=== PATIENT | male | born 1950 | race Caucasian/White ===

== ENCOUNTER 2025-01-16 06:11 | Day surgery (SDC) | payer MEDICARE, OTHER, SELFPAY ==
--- NOTE | 2025-01-11 15:31 | PAT.ANESEVAL ---
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 When Was Last Pacemaker Check QUESTION #4 FULL TEXT: You/Your Family Experience fever (hyperthermia) with Anesthesia Last Oral Intake Last Oral intake: Last Oral Intake NPO since Meds taken in AM with sips of water? Meds patient instructed to take am of surgery PONV PONV - desulphurizer operator: PONV - desulphurizer operator Female No 01/02/25 09:18 HX of Motion Sickness Yes 01/02/25 09:18 HX of N/V After Surgery No 01/02/25 09:18 Non-Smoker Yes 01/02/25 09:18 Duration of Surgery greater Yes 01/02/25 09:18 than 60 minutes Number of Risk Factors 3 01/02/25 09:18 PONV Score Moderate Risk 01/02/25 09:18 Height & Weight Height & Weight: Anesthesia: Height & Weight Height 5 ft 11 in 11/24/24 09:52 Respiratory Assessment Respiratory Assessment - desulphurizer operator: Respiratory Tract Infection Hx - desulphurizer operator Hx Respiratory Tract Infection No 01/02/25 09:18 STOP Sleep Apnea STOP Sleep Apnea - desulphurizer operator: STOP Sleep Apnea - desulphurizer operator Hx Hypertension Yes 01/02/25 09:18 Hx Sleep Apnea No 01/02/25 09:18 CPAP BIPAP Do you snore loudly (louder No 01/02/25 09:18 than talking or can be heard Do you often feel tired/ No 01/02/25 09:18 fatigued/ sleepy during daytime? Has anyone observed you stop No 01/02/25 09:18 breathing during sleep? STOP Results Negative 01/02/25 09:18 QUESTION #5 FULL TEXT : Do you snore loudly (louder than talking or can be heard through closed doors)? 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 Specify any problems Hx of Preganancy in last 3 N/A 01/02/25 09:18 Months Nurse Filling Out Transfusion DAVEY 01/02/25 09:18 & Questions: Date: 01/02/25 01/02/25 09:18 Time: 09:38 01/02/25 09:18 Patient unable to answer at this time (ie. confused, unrespo /Reproduction History /Reproductive History - desulphurizer operator: /Reproductive Hx- desulphurizer operator Hx Now Gestational Age (in weeks): EDC: Hx Hx Para Hx Section SAB No 01/02/25 09:18 [facility] Medical History (Updated 01/02/25 @ 09:33 by Alejandra Villarreal) Wears hearing aid Wears glasses Alcohol use Arthritis Prostate disease High cholesterol Heartburn Non-smoker Leg cramps Mitral valve regurgitation Hypertension History of EKG History of cardiac monitoring History of echocardiogram Cardiology follow-up encounter History of atrial fibrillation Right inguinal hernia Home Medications ?Medication ?Instructions ?Recorded ?Last Taken ?Type apixaban 5 mg tablet (Eliquis) 5 mg PO BID afib 11/24/24 Unknown History coenzyme Q10 100 mg capsule 100 mg PO QDAY 11/24/24 Unknown History (CoQ-10) famotidine 20 mg tablet 20 mg PO DAILY PRN heartburn 11/24/24 Unknown History levothyroxine 50 mcg tablet 50 mcg PO QDAY 11/24/24 Unknown History lisinopril 2.5 mg tablet 2.5 mg PO QDAY 11/24/24 Unknown History metoprolol succinate 50 mg 50 mg PO QHS 11/24/24 Unknown History tablet,extended release 24 hr rosuvastatin 5 mg tablet 5 mg PO QDAY 11/24/24 Unknown History beta prostate 1 tab PO BID 01/02/25 Unknown History qzeizozj-moa-ordqb acid 200 1 tab PO DAILY 01/02/25 Unknown History mcg-vit K1 60 mcg-lycopene 600 mcg tablet (Men's Multivitamin) Allergy/AdvReac Type Severity Reaction Status Date / Time pollen extracts (pollens) Allergy Mild runny nose Verified 01/02/25 09:14 Surgical History (Updated 01/02/25 @ 09:33 by Alejandra Villarreal) History of thyroid surgery History of left inguinal hernia repair Social History (Updated 11/24/24 @ 09:52 by Soledad Matamoros LPN) Smoking Status: Never smoker alcohol intake: never substance use type: does not use Audit: Pertinent Findings Pertinent Findings EKG Perinent findings: 12/13/2024. Sinus rhythm frequent PVCs. Bigeminy. This was noted on cardiology report. Echo (EF%) pertinent findings: 01/02/2025. EF 57%. Exam indication atrial fibrillation. No significant change from 12/18/2023 echo. Consult pertinent findings: 01/02/2025. Cardiology [facility]. Hypertension. Stable no changes. Atrial fibrillation with RVR history.. No changes to current medication. Holter showed predominantly sinus rhythm. Brief 4 run of ventricular tachycardia. Patient informed to stop Eliquis 3 days prior to upcoming hernia surgery. No further workup required. Additional pertinent findings: 12/16/2024. Potassium 5.3 on outside lab. Recommendation Anesthesia Recommendation Anesthesia recommendation: OPTIMIZED for anesthesia
--- NOTE | 2025-01-11 15:38 | PAT.ANESEVAL ---
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 When Was Last Pacemaker Check QUESTION #4 FULL TEXT: You/Your Family Experience fever (hyperthermia) with Anesthesia Last Oral Intake Last Oral intake: Last Oral Intake NPO since Meds taken in AM with sips of water? Meds patient instructed to take am of surgery PONV PONV - medical records auditor: PONV - medical records auditor Female No 01/02/25 09:18 HX of Motion Sickness Yes 01/02/25 09:18 HX of N/V After Surgery No 01/02/25 09:18 Non-Smoker Yes 01/02/25 09:18 Duration of Surgery greater Yes 01/02/25 09:18 than 60 minutes Number of Risk Factors 3 01/02/25 09:18 PONV Score Moderate Risk 01/02/25 09:18 Height & Weight Height & Weight: Anesthesia: Height & Weight Height 5 ft 11 in 11/24/24 09:52 Respiratory Assessment Respiratory Assessment - medical records auditor: Respiratory Tract Infection Hx - medical records auditor Hx Respiratory Tract Infection No 01/02/25 09:18 STOP Sleep Apnea STOP Sleep Apnea - medical records auditor: STOP Sleep Apnea - medical records auditor Hx Hypertension Yes 01/02/25 09:18 Hx Sleep Apnea No 01/02/25 09:18 CPAP BIPAP Do you snore loudly (louder No 01/02/25 09:18 than talking or can be heard Do you often feel tired/ No 01/02/25 09:18 fatigued/ sleepy during daytime? Has anyone observed you stop No 01/02/25 09:18 breathing during sleep? STOP Results Negative 01/02/25 09:18 QUESTION #5 FULL TEXT : Do you snore loudly (louder than talking or can be heard through closed doors)? 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 Specify any problems Hx of Preganancy in last 3 N/A 01/02/25 09:18 Months Nurse Filling Out Transfusion DAVEY 01/02/25 09:18 & Questions: Date: 01/02/25 01/02/25 09:18 Time: 09:38 01/02/25 09:18 Patient unable to answer at this time (ie. confused, unrespo /Reproduction History /Reproductive History - medical records auditor: /Reproductive Hx- medical records auditor Hx Now Gestational Age (in weeks): EDC: Hx Hx Para Hx Section SAB No 01/02/25 09:18 [facility] Medical History (Updated 01/02/25 @ 09:33 by Alejandra Villarreal) Wears hearing aid Wears glasses Alcohol use Arthritis Prostate disease High cholesterol Heartburn Non-smoker Leg cramps Mitral valve regurgitation Hypertension History of EKG History of cardiac monitoring History of echocardiogram Cardiology follow-up encounter History of atrial fibrillation Right inguinal hernia Home Medications ?Medication ?Instructions ?Recorded ?Last Taken ?Type apixaban 5 mg tablet (Eliquis) 5 mg PO BID afib 11/24/24 Unknown History coenzyme Q10 100 mg capsule 100 mg PO QDAY 11/24/24 Unknown History (CoQ-10) famotidine 20 mg tablet 20 mg PO DAILY PRN heartburn 11/24/24 Unknown History levothyroxine 50 mcg tablet 50 mcg PO QDAY 11/24/24 Unknown History lisinopril 2.5 mg tablet 2.5 mg PO QDAY 11/24/24 Unknown History metoprolol succinate 50 mg 50 mg PO QHS 11/24/24 Unknown History tablet,extended release 24 hr rosuvastatin 5 mg tablet 5 mg PO QDAY 11/24/24 Unknown History beta prostate 1 tab PO BID 01/02/25 Unknown History wabybqmr-ncz-vghgp acid 200 1 tab PO DAILY 01/02/25 Unknown History mcg-vit K1 60 mcg-lycopene 600 mcg tablet (Men's Multivitamin) Allergy/AdvReac Type Severity Reaction Status Date / Time pollen extracts (pollens) Allergy Mild runny nose Verified 01/02/25 09:14 Surgical History (Updated 01/02/25 @ 09:33 by Alejandra Villarreal) History of thyroid surgery History of left inguinal hernia repair Social History (Updated 11/24/24 @ 09:52 by Soledad Matamoros LPN) Smoking Status: Never smoker alcohol intake: never substance use type: does not use Audit: Pertinent Findings HISTORY of Pertinent Findings History of Pertinent Findings: EKG Pertinent Findings EKG Perinent findings 12/13/2024. Sinus rhythm 01/11/25 15:37 frequent PVCs. Bigeminy. This was noted on cardiology report. Echo Pertinent Findings Echo (EF%) pertinent findings 01/02/2025. EF 57%. Exam 01/11/25 15:37 indication atrial fibrillation. No significant change from 12/17 echo. Consult Pertinent Findings Consult pertinent findings 01/02/2025. Cardiology 01/11/25 15:37 [facility]. Hypertension. Stable no changes. Atrial fibrillation with RVR history.. No changes to current medication. Holter showed predominantly sinus rhythm. Brief 4 run of ventricular tachycardia. Patient informed to stop Eliquis 3 days prior to upcoming hernia surgery. No further workup required. Additional Pertinent Findings Additional pertinent findings 12/16/2024. Potassium 5.3 on 01/11/25 15:37 outside lab. Pertinent Findings Additional pertinent findings: With potassium on outside lab at 5.3. May consider repeat potassium check on day of surgery to ensure that the potassium is not too high. Recommendation Anesthesia Recommendation Anesthesia recommendation: OPTIMIZED for anesthesia
[2025-01-16] VITALS (7 sets, daily range): BP systolic 131–157; BP diastolic 48–78; PULSE 49–73; RESP 14–16; TEMP 36.2–36.8; O2SAT 95–99; BMI 21.5
--- NOTE | 2025-01-16 06:44 | PCM.PRE.AN2 ---
ASA Classification* ASA Classification ASA Classification: 2 Assessment & Plan Anesthesia* Anesthesia Assessment Anesthesia Assessment: Discussed sedation and/or anesthesia options, risks, benefits, and alternatives with patient/parents/legal guardian/POA. Questions invited. The patient/parents/legal guardian/POA seems to understand and agrees to proceed with anesthesia plan. Reviewed the physical assessment, medical history, allergy history and patient home medications list prior to surgery/procedure/anesthetic and documented any changes. Performed airway and anesthesia risk assessments. 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 When Was Last Pacemaker Check QUESTION #4 FULL TEXT: You/Your Family Experience fever (hyperthermia) with Anesthesia Last Oral Intake Last Oral intake: Last Oral Intake NPO since Meds taken in AM with sips of water? Meds patient instructed to take am of surgery PONV PONV - marketing development specialist: PONV - marketing development specialist Female No 01/02/25 09:18 HX of Motion Sickness Yes 01/02/25 09:18 HX of N/V After Surgery No 01/02/25 09:18 Non-Smoker Yes 01/02/25 09:18 Duration of Surgery greater Yes 01/02/25 09:18 than 60 minutes Number of Risk Factors 3 01/02/25 09:18 PONV Score Moderate Risk 01/02/25 09:18 Height & Weight Height & Weight: Anesthesia: Height & Weight Height 5 ft 11 in 11/24/24 09:52 Respiratory Assessment Respiratory Assessment - marketing development specialist: Respiratory Tract Infection Hx - marketing development specialist Hx Respiratory Tract Infection No 01/02/25 09:18 STOP Sleep Apnea STOP Sleep Apnea - marketing development specialist: STOP Sleep Apnea - marketing development specialist Hx Hypertension Yes 01/02/25 09:18 Hx Sleep Apnea No 01/02/25 09:18 CPAP BIPAP Do you snore loudly (louder No 01/02/25 09:18 than talking or can be heard Do you often feel tired/ No 01/02/25 09:18 fatigued/ sleepy during daytime? Has anyone observed you stop No 01/02/25 09:18 breathing during sleep? STOP Results Negative 01/02/25 09:18 QUESTION #5 FULL TEXT : Do you snore loudly (louder than talking or can be heard through closed doors)? 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 Specify any problems Hx of Preganancy in last 3 N/A 01/02/25 09:18 Months Nurse Filling Out Transfusion DAVEY 01/02/25 09:18 & Questions: Date: 01/02/25 01/02/25 09:18 Time: 09:38 01/02/25 09:18 Patient unable to answer at this time (ie. confused, unrespo /Reproduction History /Reproductive History - marketing development specialist: /Reproductive Hx- marketing development specialist Hx Now Gestational Age (in weeks): EDC: Hx Hx Para Hx Section SAB No 01/02/25 09:18 Active Medications Active Medications: Current Medications Generic Name Dose Route Start Last Admin Trade Name Freq PRN Reason Stop Dose Admin Cefazolin Sodium 2 gm/ Sodium 110 mls @ 200 mls/hr 01/16/25 07:30 Chloride IV 01/16/25 08:02 INTRAOP ONE Lactated Ringer's 1,000 mls @ 15 mls/hr 01/16/25 06:30 [facility] Medical History Wears hearing aid Wears glasses Alcohol use Arthritis Prostate disease High cholesterol Heartburn Non-smoker Leg cramps Mitral valve regurgitation Hypertension History of EKG History of cardiac monitoring History of echocardiogram Cardiology follow-up encounter History of atrial fibrillation Right inguinal hernia Home Medications ?Medication ?Instructions ?Recorded ?Last Taken ?Type apixaban 5 mg tablet (Eliquis) 5 mg PO BID afib 11/24/24 01/12/25 History coenzyme Q10 100 mg capsule 100 mg PO QDAY 11/24/24 01/13/25 History (CoQ-10) famotidine 20 mg tablet 20 mg PO DAILY PRN heartburn 11/24/24 01/12/25 History levothyroxine 50 mcg tablet 50 mcg PO QDAY 11/24/24 01/16/25 History lisinopril 2.5 mg tablet 2.5 mg PO QDAY 11/24/24 01/15/25 History metoprolol succinate 50 mg 50 mg PO QHS 11/24/24 01/15/25 History tablet,extended release 24 hr rosuvastatin 5 mg tablet 5 mg PO QDAY 11/24/24 01/14/25 History beta prostate 1 tab PO BID 01/02/25 01/15/25 History haytofsh-rrb-yzxhj acid 200 1 tab PO DAILY 01/02/25 01/11/25 History mcg-vit K1 60 mcg-lycopene 600 mcg tablet (Men's Multivitamin) Allergy/AdvReac Type Severity Reaction Status Date / Time pollen extracts (pollens) Allergy Mild runny nose Verified 01/02/25 09:14 Surgical History History of thyroid surgery History of left inguinal hernia repair Social History Smoking Status: Never smoker alcohol intake: never substance use type: does not use Review of Systems (Anesthesia) ROS Narrative System reviewed and no additional complaints, except as documented.
[2025-01-16] MEDS: Lactated Ringers 1,000 ML 15 ML IV (06:56)
--- NOTE | 2025-01-16 07:22 | PCM.HP.STD ---
HPI - General General Date of Admission: 01/16/25 Date of Service: 01/16/25 Chief Complaint: Right inguinal hernia HPI Narrative CHIRAG AYALA, is a 74 M who presents for elective robotic right inguinal hernia repair with mesh. I had performed a previous left inguinal hernia repair laparoscopically years ago for recurrent left inguinal hernia. He recently presented to my office with a right inguinal hernia. We discussed the details of the planned procedure and he wished to proceed. [facility] Medical History Wears hearing aid Wears glasses Alcohol use Arthritis Prostate disease High cholesterol Heartburn Non-smoker Leg cramps Mitral valve regurgitation Hypertension History of EKG History of cardiac monitoring History of echocardiogram Cardiology follow-up encounter History of atrial fibrillation Right inguinal hernia Home Medications ?Medication ?Instructions ?Recorded ?Last Taken ?Type apixaban 5 mg tablet (Eliquis) 5 mg PO BID afib 11/24/24 01/12/25 History coenzyme Q10 100 mg capsule 100 mg PO QDAY 11/24/24 01/13/25 History (CoQ-10) famotidine 20 mg tablet 20 mg PO DAILY PRN heartburn 11/24/24 01/12/25 History levothyroxine 50 mcg tablet 50 mcg PO QDAY 11/24/24 01/16/25 History lisinopril 2.5 mg tablet 2.5 mg PO QDAY 11/24/24 01/15/25 History metoprolol succinate 50 mg 50 mg PO QHS 11/24/24 01/15/25 History tablet,extended release 24 hr rosuvastatin 5 mg tablet 5 mg PO QDAY 11/24/24 01/14/25 History beta prostate 1 tab PO BID 01/02/25 01/15/25 History qlotgcwh-pwe-ihpzr acid 200 1 tab PO DAILY 01/02/25 01/11/25 History mcg-vit K1 60 mcg-lycopene 600 mcg tablet (Men's Multivitamin) Allergy/AdvReac Type Severity Reaction Status Date / Time pollen extracts (pollens) Allergy Mild runny nose Verified 01/02/25 09:14 Surgical History History of thyroid surgery History of left inguinal hernia repair Social History Smoking Status: Never smoker alcohol intake: never substance use type: does not use Vital Signs Vital Signs Vital Signs: 01/16/25 06:49 01/16/25 06:51 Temperature 98.3 F Temperature Source Temporal Pulse Rate 49 L Respiratory Rate 16 Respiratory Pattern Normal Blood Pressure 136/78 H Blood Pressure Mean 97 Blood Pressure Source Monitor Blood Pressure Position Semi-Fowlers Blood Pressure Location Right Arm Pulse Ox 99 Oxygen Delivery Method Room Air Weight Weight: 154 lb 5.177 oz Body Mass Index (BMI) 21.5 Physical Exam Const alert, oriented x3 and no apparent distress Results Lab / Micro Data 01/16/25 06:54 Assessment & Plan Assessment/Plan (1) Right inguinal hernia: PLAN: Plan The patient is a 74-year-old male with a right inguinal hernia. I offered him a robotic right inguinal hernia repair with mesh. We discussed the details of the planned procedure including the risks benefits and alternatives. He wished to proceed. Surgery began momentarily
[2025-01-16 07:26] LABS: Potassium 4.9 mmol/L (3.3-5.1)
[2025-01-16] MEDS: fentaNYL 100 MCG/2 ML Ampul 50 MCG IV (07:34)
[2025-01-16] MEDS: Lidocaine 1% (5 ml sdv) 5 ML Vial IV (07:35)
[2025-01-16] MEDS: Midazolam 2 MG/2 ML Syringe IV (07:35)
[2025-01-16] MEDS: Cefazolin 1 GM/5 ML Vial 2 GM IV (07:38)
--- NOTE | 2025-01-16 08:46 | DCINST_ITS ---
Discharge Instructions
--- NOTE | 2025-01-16 08:46 | EX.PCM.DISCH ---
Discharge Instructions Diet Discharge Diet: Light diet - advance as tolerated Activity Discharge Activity: Return to Normal Activity and May Shower May shower in (days): 1 Ice area for (Minutes): 30 Lifting Restrictions: No lifting pushing or pulling more than 20 pounds for 6 weeks Dressing / Incision Call your doctor if your incision/area has: Continuous Slow Oozing, Sudden Increased Bleeding, Increased Pain/ Swelling, Increased Redness, Foul Smelling Discharge and Swelling at the incision site Call your doctor if you observe: Fever of 101 or Higher Cleanse incision/area with: Soap & Water Follow Up Care Please Follow Up With: Hai Perez MD When: 2 weeks. Please call office to schedule appointment Test Results: Test results from this visit will be discussed in further detail at your follow-up appointment, if applicable. Discharge Plan Admission Primary Reason for Your Visit: Robotic right inguinal hernia repair with mesh Attending Provider: Hai Perez Primary Care Provider: Bharat Muniz Instructions Print Language: Eritrean Discharge Orders/Prescriptions Prescriptions: New oxycodone 5 mg tablet 5 mg PO Q8H PRN (Reason: pain) 4 Days Qty: 10 0RF Continued rosuvastatin 5 mg tablet 5 mg PO QDAY famotidine 20 mg tablet 20 mg PO DAILY PRN (Reason: heartburn) Patient Comments: [NO ORIGINAL SIG] Eliquis 5 mg tablet 5 mg PO BID Patient Comments: [NO ORIGINAL SIG] metoprolol succinate 50 mg tablet extended release 24 hr 50 mg PO QHS lisinopril 2.5 mg tablet 2.5 mg PO QDAY levothyroxine 50 mcg tablet 50 mcg PO QDAY coenzyme Q10 [CoQ-10] 100 mg capsule 100 mg PO QDAY Men's Multivitamin 200-60-600 mcg tablet 1 tab PO DAILY beta prostate 1 tab PO BID Referrals / Follow Up: Bharat Muniz MD [Primary Care Provider, Medical] Disposition Disposition (needs filled in before D/C Order can be placed): Home, Self Care
[2025-01-16] MEDS: Bupiv/Epi 0.25% 30 ML Vial (08:50)
--- NOTE | 2025-01-16 08:50 | PCM.OPRPT ---
Procedures Digestive 40xxx-49xxx: 68617 Lap ing hernia repair init Operative Report (Standard) Operative Information Date of Procedure: 01/16/25 Pre-Operative Diagnosis: Right inguinal hernia Post-Operative Diagnosis: Same Surgery/Procedure Performed: Robotic right inguinal hernia repair with mesh cad designer drafter: Yes Furniture Sprayer: Senait Lagos Tasks completed by medical assistant secretary: Closing, Trocar and Other Additional speech language pathology assistant?: No Type of Anesthesia: General and Local RN Documented Start/Stop Times: Operation Date: 01/16/25 07:30 Case Time Into Pre-Op 01/16/25 06:17 Out of Pre-Op 01/16/25 07:29 Anesthesia Start 01/16/25 07:33 Into Room 01/16/25 07:33 Procedure Start 01/16/25 07:56 Procedure Start Time: 07:56 Procedure Stop Time: 08:51 Select all DRAINS/GRAFTS/IMPLANTS that apply: Prosthetic device Prosthetic device details: ProGrip 10 x 15 cm mesh Special Medications: 2 g Ancef IV Estimated Blood Loss: 5 mL Specimen collected: No Description of surgery: The patient is a 74-year-old male who presented to my office recently with complaints of a right groin pain and bulge. He was diagnosed with a right inguinal hernia. Patient was previously known to me for previous left inguinal hernia repair performed laparoscopically about 5 years ago. He had had multiple previous left-sided hernia repairs which was successfully repaired finally with a laparoscopic left inguinal hernia repair with mesh. He since developed a right inguinal hernia and contacted me to discuss repair. I offered him a robotic repair with mesh. We discussed the details of the planned procedure including the risks benefits and alternatives. He wished to proceed. The patient was brought to the op room today following informed consent. Preoperative antibiotics were given and a timeout was performed. He is placed supine on the operative table with arms outstretched and arm boards. General endotracheal anesthesia was induced. Once adequately anesthetized his arms were comfortably tucked to the sides. His abdomen was then prepped and draped in the usual sterile manner. Local anesthetic was injected into the sites of his previous laparoscopic inguinal hernia repair. An 8 mm incision was made at the umbilicus. Through this incision a 5 mm trocar was placed optically. This was placed without incident. Once in place the abdomen was then fully insufflated with CO2 gas. A 5 mm 0 degree scope was inserted. There were no signs of bowel or vascular injury. Next 2 additional 8 mm trocars were placed. 1 was placed on the right side and the other was placed on the left side. These were placed through his previous laparoscopic incision sites. Again local anesthetic was injected prior to the insertion of the trocars. Once these were in place, an 8 mm robotic trocar was placed at the umbilicus replaced and the 5 mm trocar. The patient was then placed into Trendelenburg positioning. The da Abhinav robot was then brought onto the operative field and successfully docked. Necessary instrumentation was then inserted. At this point the pelvis was visualized. There was no evidence of left inguinal hernia. There was clearly a right inguinal hernia. This appeared to be both a direct and indirect hernia just on initial observation. Next, the peritoneum was then incised in a lateral to medial direction using curved scissors and electrocautery. A subperitoneal plane was then developed inferiorly and superiorly. Lane's ligament was dissected out medially. The more medial direct hernia was then reduced after was dissected free. Attention was then turned to dissecting down the indirect hernia sac. This was carefully dissected off of the cord structures. All cord structures were spared. Once sufficient dissection was performed to accommodate the mesh, a ProGrip 10 x 15 use of mesh was placed in antibiotic solution and then trimmed to the necessary size for the operative field. This was then inserted and then unrolled. I covered over the operative site and fascial defect nicely. Once the mesh was in place, the peritoneum was then closed in a running manner using a 6 inch V-Loc suture. This closed the peritoneum very nicely. All counts were correct. Additional local anesthetic was injected into the incisions for a total of 30 cc. The trocars were then removed. The incisions were then closed with 4-0 Vicryl and then skin glue. He was awakened from anesthesia and taken to recovery in good condition. Surgical Findings: Right sided direct and indirect inguinal hernia Complications Complications: No Admit VTE Documentation VTE Present on Admission: No VTE Mechan Device Prophylaxis: SCD's VTE Pharm Prophylaxis ordered?: No Reason prophylaxis not ordered: Treatment Not Indicated
[2025-01-16] MEDS: Ketorolac 30 MG/ML Syringe IV (08:52)
--- NOTE | 2025-01-16 09:07 | POSTOP.ANE_ITS ---
Anesthesia: Postop Eval I
--- NOTE | 2025-01-16 09:07 | PCM.POST.ANE ---
Anesthesia: Postop Eval I Current Vital Signs Temperature: 97.3 F Pulse Rate: 57 Blood Pressure: 157/75 Respiratory Rate: 16 Pulse Ox: 97 Oxygen Delivery Method: Room Air Assessment Airway patent: Yes Spontaneous unlabored respirations: Yes Mental status: Asleep nausea: No Vomiting: No Anesthesia Complication: No Fluid Hydration Crystalloid volume administer (ml): 900 Total IV fluid infused: 900 Progress Note Anesthesia document: Postop Eval 1 completed: Yes
--- NOTE | 2025-01-16 09:51 | POSTOPAN2_ITS ---
Anesthesia Postop Eval I Sum
--- NOTE | 2025-01-16 09:51 | PCM.POSTANE2 ---
Anesthesia Postop Eval I Sum Postop Eval Completion status Anesthesia document: Postop Eval 1 completed: Yes Anesthesia Postop Eval I Summary Anesthesia Postop Eval I Summary: Anesthesia Postop Eval I: Assessment Summary Airway patent Yes 01/16/25 09:08 MEDICATION ASSISTANT.VivianDEF Spontaneous unlabored Yes 01/16/25 09:08 MEDICATION ASSISTANT.ROOPAF respirations Mental status Asleep 01/16/25 09:08 MEDICATION ASSISTANT.JDEF nausea No 01/16/25 09:08 MEDICATION ASSISTANT.JDEF Vomiting No 01/16/25 09:08 MEDICATION ASSISTANT.JDEF Anesthesia Postop Eval I: Fluid Summary Crystalloid volume administer 900 01/16/25 09:08 MEDICATION ASSISTANT.JDEF (ml) Colloids volume administered ( ml) Blood Product volume administered (ml) Total IV fluid infused 900 01/16/25 09:08 MEDICATION ASSISTANT.JDEF Anesthesia Postop Eval I: Summary Notes Anesthesia Complication No 01/16/25 09:08 MEDICATION ASSISTANT.JDEF Anesthesia Complication Comment: Post-operative progress note Anesthesia: Postop Eval II Evaluation Mental status: Awake Pain Level: 0 nausea: No Vomiting: No
== END 2025-01-16 11:26 | disposition home or self-care (01) ==
LOC: SDC 06:15 → AC 06:16
PROVIDERS: Anesthesiology; PCP Family Medicine; Referring Provider Surgery; Visit Provider Surgery
PROC: (CPT 49650; principal; 2025-01-16 07:10)
DX: K40.90 Unilateral inguinal hernia, without obstruction or gangrene, not specified as recurrent (principal); I48.91 Unspecified atrial fibrillation; Z79.01 Long term (current) use of anticoagulants; E78.00 Pure hypercholesterolemia, unspecified; I10 Essential (primary) hypertension; Z79.890 Hormone replacement therapy; Z79.899 Other long term (current) drug therapy
CPT/HCPCS: 49650; S2900; 00840; 84132; C1781; J2405